=== PATIENT | male | born 1985 | race African-American/Black ===

== ENCOUNTER 2019-07-07 01:02 | Observation (INO) ==
[2019-07-07] MEDS ORDERED: DILANTIN IV ONE ×2 (01:30→02:00)
[2019-07-07] MEDS ORDERED: DILANTIN PO ONE (01:45)
[2019-07-07] MEDS ORDERED: NS IV ONE (02:00)
[2019-07-07] MEDS ORDERED: DILANTIN ONE (02:06)
--- NOTE | 2019-07-07 03:02 | PROVIDER DOCUMENTATION ---
This chart was entered by Harsha Donis Scribe, acting as scribe for Eric Parikh MD. HPI-Neurological Disorder - General Chief Complaint: Seizure Stated Complaint: SEIZURE Time Seen by Provider: 07/07/19 01:28 Source: patient, EMS Unable to obtain history due to:: altered Allergies/Adverse Reactions: Patient Allergies Allergy/AdvReac Type Severity Reaction Status Date / Time No Known Allergies Allergy Verified 10/24/18 03:36 Home Medications: Home Medication List Medication Instructions Recorded Confirmed Last Taken Type Phenytoin [Dilantin] 300 mg PO DAILY 07/18/17 07/18/17 07/18/17 History Phenytoin [Dilantin] 100 mg PO TID #90 cap 02/16/18 Unknown Rx Phenytoin [Dilantin] 100 mg PO TID 30 Days #90 cap 10/24/18 Unknown Rx Phenytoin [Dilantin] 3 cap PO QHS #90 cap 03/07/19 Unknown Rx - History of Present Illness-Neuro Nature of Presenting Problem: Pt presents s/p seizure, pt has had 2 seizures today, pmh of same, pt is on dilantin but is non compliant, pt denies head trauma, pt denies f/c, bonilla, cp, sob, cough, ap, n/v/d. Pt is lying in bed in no acute distress. Severity: reports: mild Onset/Duration: reports: abrupt Timing: reports: improving Context: reports: seizure activity Any recent trauma/injury?: reports: none New weakness or altered sensation location:: reports: none Cognitive Baseline: alert, oriented x3 Gait Baseline: walks without assistance Associated Symptoms: reports: denies symptoms Similar Symptoms Previously?: Yes Recently seen or treated by another doctor?: Yes - Seizure First time to have a seizure?: No How many seizure episodes?: 2 Episode Frequency: occasional episodes Review of Systems - Adult - REVIEW OF SYSTEMS - ADULT ROS:: limited per condition Constitutional: reports: see HPI Ears, Nose, Mouth & Throat: reports: no symptoms reported Cardiovascular: reports: no symptoms reported Respiratory: reports: no symptoms reported Gastrointestinal: reports: no symptoms reported Genitourinary: reports: no symptoms reported Musculoskeletal: reports: no symptoms reported Integumentary: reports: no symptoms reported Neurological: reports: see HPI, seizure Psychiatric: reports: no symptoms reported Endocrine: reports: no symptoms reported Hematologic/Lymphatic: reports: no symptoms reported Allergic/Immunologic: reports: no symptoms reported All Other Systems: Reviewed and Negative Past History - Adult - PAST MEDICAL HISTORY-ADULT Review of Records: reports: Old Records Reviewed, Nursing Assessment Review, Medications Reviewed, Social history reviewed & non-contributory. Major Childhood Illnesses: reports: denies history Cardiovascular: reports: denies history Respiratory: reports: asthma Gastrointestinal: reports: denies history Obstetrical/Gynecological: reports: denies history Genitourinary: reports: denies history Musculoskeletal: reports: denies history Neurological: reports: Seizures/Epilepsy Psychiatric: reports: denies history Endocrine/Immune: reports: denies history Other Conditions: reports: denies history - PRIOR SURGERIES/PROCEDURES Surgical/Procedure History: reports: none - PRIOR HOSPITALIZATIONS Prior Hospitalizations: reports: none - IMMUNIZATION STATUS Childhood Immunizations: See Nurse Assessment Flu Vaccine: See Nurse Assessment - FAMILY HISTORY Family History: reviewed, not pertinent - SOCIAL HISTORY Smoking: cigarettes, less than 1 pack/day Substance Use: alcohol, marijuana Alcohol Use Frequency: occasionally Physical Exam- Neurological - Physical Exam-Neuro Initial Vital Signs Reviewed: Yes General Appearance: appears well, alert, no apparent distress HENMT: normocephalic/atraumatic Head Injury: no evidence of injury Neck: normal inspection Respiratory: lungs clear, no respiratory distress, no accessory muscle use Cardiovascular: regular rate, rhythm Abdominal Exam: non tender, soft Lymphatic: no adenopathy 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 Coordination/Gait: normal gait Motor/Sensory: no motor deficit, no sensory deficit Neurologic: grossly normal Integumentary: normal color Psych/Mental Status: normal mood/affect Progress - PLAN OF CARE/RESULTS Progress/Plan/Lab Results: Vital Signs - 8 hr 07/07/19 02:07 Temperature 98.9 F Pulse Rate 70 Respiratory Rate 17 Blood Pressure 133/76 O2 Sat by Pulse Oximetry 97 Orders Category Date Time Status Phenytoin [Dilantin] Med 07/07/19 01:45 Discontinued 1,000 mg PO NOW ONE Phenytoin [Dilantin] Med 07/07/19 02:06 Discontinued 200 mg .ROUTE .STK-MED ONE Phenytoin [Dilantin] 1,000 mg Med 07/07/19 02:00 Discontinued 0.9% Sodium Chloride Inj [Ns] 150 ml IV ONCE Pt loaded with dilantin, pt observed in the ED and no subsequent seizures, pt to dc home and f/u with pcp, given strict return precautions for any new or worsening symptoms Departure - Departure Date of Disposition Decision: 07/07/19 Time of Disposition Decision: 03:02 DIAGNOSIS: Seizure disorder Disposition: HOME 01 Certified Medical Emergency: Emergent Condition: Stable Additional Freetext Instructions: ED Follow Up Instructions: You have been treated by a care provider in the Emergency Department. These instructions are being provided to you so you can have an understanding of how to care for yourself upon discharge. Upon discharge from the Emergency Department, you are responsible for making arrangements for follow-up care by a physician of your choice. Take all prescribed medications as directed. Return to the Emergency Department immediately for any new or worsening symptoms. You may call the Physician Referral phone number at [phone] to obtain a list of Physicians who are taking new patients. - Critical Care Note This patient required my direct & personal management of CC.: No Attestation - Physician/ EVELYNE Attestation Patient care was provided by Advanced Practice Provider:: No The physician spent face to face time with patient:: Yes Advanced Practice Provider documentation review:: Supervising physician onsite and consulted in the evaluation and care of this patient. The physician did have a face to face encounter with the patient. This chart was documented by the indicated scribe, (Harsha Donis, Jaye) and accurately reflects the services I performed and decisions made by me, Eric Parikh MD, as attested by the provider's signature.
[2019-07-07] MEDS ORDERED: ATIVAN IV ONE (04:08)
[2019-07-07 04:44] LABS: BASO# 0.02 X1000 (0.0-0.2); BASO% 0.1 % (0.0-0.8); IMM GRAN# 0.05 X1000 (0.0-0.04); IMM GRAN% 0.2 % (0.0-0.5); LYMPH# 2.03 X1000 (1.2-3.4); LYMPH% 9.6 % (20.5-51.1); MCH 32.3 PG (27-31); MCV 94.8 FL (81-99); MONO# 1.61 X1000 (0.11-0.59); MONO% 7.6 % (1.7-9.3); MPV 9.5 FL (7.4-10.4); NEUT# 17.45 X1000 (1.4-6.5); NEUT% 82.5 % (42.2-75.2); PLT 342 X1000 (130-400); RBC 4.96 XMIL (4.7-6.1); RDW 12.2 % (11.5-14.5); WBC 21.16 X1000 (4.8-10.8)
[2019-07-07 06:13] LABS: AGAP 13; ALB/GLOB RATIO 1.6; ALBUMIN 4.7 g/dL (3.5-5.0); ALKALINE PHOSPHATASE 77 U/L (32-122); BUN 15 mg/dL (8-22); CALCIUM 9.3 mg/dL (8.8-10.2); CHLORIDE 104 mmol/L (98-107); COSMO 279; CREATININE 1.4 mg/dL (0.7-1.2); ESTIMATED GFR > 60; GLUCOSE 82 mg/dL (70-104); GOT 26 U/L (10-34); GPT 16 U/L (10-44); POTASSIUM 4.6 mmol/L (3.5-5.1); SODIUM 140 mmol/L (136-145); TCO2 23 mmol/L (25-35); TOTAL BILIRUBIN 0.19 mg/dL (0.20-1.00); TOTAL PROTEIN 7.6 g/dL (6.3-8.3)
[2019-07-07] MEDS ORDERED: ATIVAN IV PRN (06:35)
[2019-07-07] MEDS ORDERED: NS 1,000 ML IV SCH (06:45)
[2019-07-07] MEDS: DILANTIN PO SCH ×4 (09:18→18:13)
[2019-07-07] MEDS ORDERED: ZOFRAN IV PRN (09:29)
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
--- NOTE | 2019-07-07 15:51 | CONSULTATION ---
DATE OF CONSULTATION: 07/07/2019 Mr. Killian is 33 years old and he has a longstanding seizure disorder, previously attributed to childhood head trauma. He has a long history of noncompliance with recommended seizure medications. My office records and the hospital records indicate he has generally done well with good seizure control when taking phenytoin 400 mg daily as prescribed. He generally does not take the medicine regularly. He told me today that he takes "3 or 4" some days and none many days. He reports no adverse effects and no specific complaints and no particular reason that he would not take the medicine every day as directed. He does not have trouble affording medicine or obtaining prescription. He presented this time following seizure associated with not taking his phenytoin. I told him he should take the medicine as directed. We discussed alternate seizure medicines, referral for other opinions, potential for serious injury associated with seizure in certain environments. I encouraged him to avoid situations in which a seizure might result in injury to him or to someone else. We reviewed discussion of the [place] Law as it pertains to driving and he expressed understanding. I do not have any new thoughts or new suggestions. If he will not take the medicine as directed, I think we have very limited options. He has had appointments in my office and kept some of those and I will be glad to see him again. Thanks for asking Neurology to see Mr. Killian. cc: MD LIVIA Mohr III
[2019-07-08 07:48] VITALS: BP 104/54
[2019-07-08 08:07] LABS: CALCIUM 8.6 mg/dL (8.8-10.2); CREATININE 3.2 mg/dL (0.7-1.2); POTASSIUM 4.2 mmol/L (3.5-5.1)
[2019-07-08] MEDS: DILANTIN PO SCH (09:34)
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
== END 2019-07-08 10:26 | disposition home or self-care (01) ==
LOC: ED 01:02 → 3N 01:02
PROVIDERS: ATTEND Emergency Medicine